=== PATIENT | female | born 1990 | race American Indian/Alaskan Native ===

== ENCOUNTER 2016-06-08 21:43 | Outpatient (CLI) | payer MEDICAID ==
[2016-06-08] MEDS ORDERED: LACTATED RINGERS 500 ML IV ONE (21:46)
[2016-06-08 21:57] VITALS: BP 114/60
[2016-06-08 23:07] LABS: Bilirubin,Urine NEG (Negative); Blood,Urine SM (Negative); Ketones,Urine 20 mg/dL (Negative); Leukocyte Esterase,Urine TR (Negative); Mucus,Urine FEW /HPF; Nitrite,Urine NEG (Negative); Protein,Urine <15 mg/dL mg/dL (Negative); Urobilinogen,Urine < 2.0 mg/dL (<2.0)
[2016-06-09] MEDS ORDERED: LACTATED RINGERS 1,000 ML IV SCH (01:00)
== END 2016-06-09 01:07 | disposition home or self-care (01) ==
LOC: TRG 21:43
PROVIDERS: ATTEND Obstetrics & Gynecology Gynecology
DX: O77.9 Labor and delivery complicated by fetal stress, unspecified (principal); O47.03 False labor before 37 completed weeks of gestation, third trimester; Z3A.30 30 weeks gestation of pregnancy
CPT/HCPCS: 36415; 59025; 81001; 82731; 96360; J7120